=== PATIENT | female | born 1990 | race Caucasian/White ===

== ENCOUNTER 2019-07-26 13:45 | Outpatient (CLI) | payer MEDICAID ==
[~2019-07-26] VITALS: Ht 172.7 cm; Wt 75.9 kg
--- NOTE | 2019-07-26 13:45 | NUR ---
PATIENT ON EFM. SVE, VITALS OBTAINED. PATIENT STATES SHE HAS HAD A FEW CONTRACTIONS, DENIES LEAKING OF FLUID OR BLEEDING. PATIENT STATES SHE SMOKES MARIJUANA ON OCCASION MEDICINALLY FOR PELVIC DISCOMFORT ORDERED BY HER ORTHOPEDIC DOCTOR. THIS NURSE STATED THAT PER POLICY WE NEED TO OBTAIN A URINE DRUG SCREEN. PATIENT DECLINED AND STATES " I AM OFFENDED AND DONT KNOW THE PONT OF THIS" THIS NURSE STATED THE RISKS TO . PATIENT DECLINED. THIS NURSE STATES "OK, GO AHEAD AND GET DRESSED. ILL BE BACK WITH YOUR PAPERWORK" PATIENT LEFT UNIT BEFORE PAPERWORK GIVEN.
[2019-07-26 14:16] VITALS: BP 118/74; PULSE 78; TEMP 97.5
== END 2019-07-26 14:25 | disposition home or self-care (01) ==
LOC: LDRO 13:45 → LDR 13:45 → LDRO 14:25 → LDR 07-28 08:46
DX: O36.8130 Decreased fetal movements, third trimester, not applicable or unspecified (principal); Z3A.35 35 weeks gestation of pregnancy
CPT/HCPCS: OP

== ENCOUNTER 2019-08-22 08:20 | Inpatient (IN) | payer MEDICAID ==
[2019-08-22] VITALS (17 sets, daily range): BP systolic 107–133; BP diastolic 59–81; PULSE 53–97; TEMP 97.5–97.7
[~2019-08-22] VITALS: Ht 172.7 cm; Wt 76.4 kg
--- NOTE | 2019-08-22 12:10 | NUR ---
Patient ambulatory to unit accompanied by sister in law for scheduled section delivery. Patient oriented to room and call light. Gown on and resting in bed. FHR and contraction monitors placed and explained. Assessment completed. Patient denies any leaking of fluid, vaginal bleeding and states baby is active. Patient states she has a DVT in left inner thigh, assessed. Patient states she takes Heparin 1 mg twice daily SQ and took her last dose 08/21/2019 at 2030. Consents signed. IV started in right forearm and LR infusing well. Labs collected from IV site and sent to lab. UA collected and sent to lab for hx of MJ use during . Patient states last use was June 2019.
[2019-08-22] MEDS ORDERED: [UNRECOGNIZED DRUG - CODE] SQ (12:51)
[2019-08-22] MEDS ORDERED: NATURAL IRON65 MG PO (12:51)
[2019-08-22] MEDS ORDERED: PRENATAL TABLET PO (12:52)
[2019-08-22 13:01] LABS: BASO % 0.2 % (0.0-2.0); EOS % 0.4 % (0-4.0); GRAN # 3.5 (1.4-6.5); GRAN % 65.5 % (42.2-75.2); HEMOGLOBIN 11.4 g/dl (12.5-16.0); LYMPH # 1.4 (1.2-3.4); LYMPH % 26.6 % (20.0-51.0); MEAN CELL VOLUME 97 fl (80.0-100.0); MEAN CORPUSCULAR HEMOGLOBIN 32 pg (27.0-31.0); MEAN CORPUSCULAR HGB CONC 33 g/dl (33.0-37.0); MEAN PLATELET VOLUME 12.9 fl (7.4-10.4); MONO # 0.4 (0.1-0.6); MONO % 6.9 % (1.7-9.3); PLATELET COUNT 116 K/mm3 (130-400); RED BLOOD COUNT 3.56 M/mm3 (4.10-5.30)
[2019-08-22 13:02] LABS: HEMATOCRIT 34.6 % (37.0-47.0)
[2019-08-22 13:34] LABS: TRICYCLIC ANTIDEPRESS URINE NEGATIVE
[2019-08-22] MEDS ORDERED: IBU800 M1 PO (15:45)
[2019-08-22] MEDS ORDERED: PERCOCET 325 MG1 TA2 PO (15:45)
[2019-08-22] MEDS ORDERED: LOVENOX 4040 MG/0.4 SQ (15:45)
--- NOTE | 2019-08-22 17:35 | NUR ---
Patient nauseated and vomits 200 ml dark emesis after eating crackers and pudding. Patient given zofran IV.
--- NOTE | 2019-08-22 21:45 | NUR ---
Pt able to lift and hold each leg off of bed for 5 seconds and no longer feels nauseous with vomiting. Pt able to ambulate to bathroom independently. Alarcon catheter removed, 300 mL urine. Pericare explained and provided. Mesh panties and peripad applied. New gown on. Pt educated on need of 3 measured voids. Pt able to ambulate back to bed. Safety precautions reviewed. Pt encouraged to continue to wear SCD's due to history of DVT.
[2019-08-23] VITALS: BP 100/60; PULSE 70; TEMP 97.9
[2019-08-23 04:15] VITALS: BP 102/71; PULSE 70; TEMP 97.7
[2019-08-23 06:30] VITALS: BP 127/65; PULSE 61; TEMP 98.2
[2019-08-23 09:08] LABS: BASO % 0.1 % (0.0-2.0); GRAN # 7.4 (1.4-6.5); GRAN % 82.5 % (42.2-75.2); HEMOGLOBIN 11.1 g/dl (12.5-16.0); LYMPH # 1.1 (1.2-3.4); LYMPH % 11.8 % (20.0-51.0); MEAN CELL VOLUME 96 fl (80.0-100.0); MEAN CORPUSCULAR HEMOGLOBIN 32 pg (27.0-31.0); MEAN CORPUSCULAR HGB CONC 33 g/dl (33.0-37.0); MEAN PLATELET VOLUME 12.8 fl (7.4-10.4); MONO # 0.5 (0.1-0.6); MONO % 5.4 % (1.7-9.3); PLATELET COUNT 114 K/mm3 (130-400); RED BLOOD COUNT 3.47 M/mm3 (4.10-5.30); REDCELL DISTRIBUTION WIDTH-CV 14.1 % (11.5-14.5)
[2019-08-23 09:10] LABS: HEMATOCRIT 33.3 % (37.0-47.0)
[2019-08-23 11:00] VITALS: BP 135/59; PULSE 70; TEMP 98.2
[2019-08-23 17:02] VITALS: BP 11/68; PULSE 68
[2019-08-23 20:03] VITALS: BP 108/68; PULSE 74; TEMP 97.8
[2019-08-24 04:00] VITALS: BP 110/65; PULSE 69; TEMP 98
[2019-08-24 07:15] VITALS: BP 122/82; PULSE 81; TEMP 98.6
[2019-08-24 15:30] VITALS: BP 118/67; PULSE 70; TEMP 98.2
[2019-08-24 23:15] VITALS: BP 120/73; PULSE 62; TEMP 98
[2019-08-25 06:55] VITALS: BP 120/88; PULSE 78; TEMP 98.1
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
[2019-08-25] MEDS ORDERED: IBU800 M1 PO (10:56)
[2019-08-25] MEDS ORDERED: PERCOCET 325 MG1 TA2 PO (12:36)
[2019-08-25 16:31] VITALS: BP 114/66; PULSE 78; TEMP 98.1
--- NOTE | 2019-08-25 16:32 | NUR ---
PERCOCET SCRIPT PRINTED BY DR CAMPOS ON Sunday08/22/19 FOR INSTRUCTIONS OF ONE PERCOCET 5/325 EVERY 4 HOURS NEEDED QUANTITY #15 AND PLACED IN CHART. SCRIPT NOWHERE TO BE FOUND AT THIS TIME. NOT IN CHART AND PATIENT STATES IT WAS NOT GIVEN TO HER. PERCOCET 5/325 ONE TABLET EVERY 4 HOURS NEEDED FOR PAIN QUANTITY #[address] CAMPOS AND GIVEN TO PATIENT AT THIS TIME PER THIS NURSE PER DR CAMPOS REQUEST.
--- NOTE | 2019-08-25 17:08 | NUR ---
Percocet #15 script found and voided.
[2019-08-25 19:47] VITALS: BP 126/72; PULSE 54; TEMP 97.8
--- NOTE | 2019-08-26 05:45 | NUR ---
PT COMES OUT IN HALLWAY AND SAYS HER LEFT INNER THIGH- SITE OF HER DVT- IS SORE AND SHE JUST NOW NOTICED IT- IT IS NOT WARM TO THE TOUCH- I ONLY COULD SEE THE ORIGINAL SITE BUT PT CLAIMS THE PAIN IS BELOW THAT SITE- PT STATES SHE HAS NOT BEEN VERY ACTIVE FAR WALKING IN THE HALLS THE LAST DAY. SHE HAS BEEN MOVING IN THE ROOM QUITE A BIT- BUT THE BABY SLEPT FOR A WHILE SO SHE WAS ALSO ASLEEP. I TOLD HER I WOULD PASS IT ON IN REPORT AND SHE SHOULD DEFINIATELY PASS IT ON TO HER DOCTOR
[2019-08-26 07:25] VITALS: BP 137/89; PULSE 51; TEMP 97.8
--- NOTE | 2019-08-26 08:19 | NUR ---
Infant cord blood tested negative for illegal substances.
[2019-08-26 15:50] VITALS: BP 131/84; PULSE 62; TEMP 97.5
== END 2019-08-26 17:15 | disposition home or self-care (01) | DRG 787 ==
LOC: LDR 08:20 → OB 12:04
PROVIDERS: ADMIT Student in an Organized Health Care Education/Training Program
PROC: 10D00Z1 Extraction of Products of Conception, Low, Open Approach (ICD-10-PCS; principal; 2019-08-22)
DX: O34.211 Maternal care for low transverse scar from previous cesarean delivery (principal); O99.354 Diseases of the nervous system complicating childbirth; O87.0 Superficial thrombophlebitis in the puerperium; O99.12 Other diseases of the blood and blood-forming organs and certain disorders involving the immune mechanism complicating childbirth; O99.02 Anemia complicating childbirth; D64.9 Anemia, unspecified; D69.6 Thrombocytopenia, unspecified; G43.909 Migraine, unspecified, not intractable, without status migrainosus; O99.62 Diseases of the digestive system complicating childbirth; K21.9 Gastro-esophageal reflux disease without esophagitis; O87.4 Varicose veins of lower extremity in the puerperium; Z3A.39 39 weeks gestation of pregnancy; Z37.0 Single live birth
CPT/HCPCS: J0690; J1650; J1885; J2270; J2370; J2405; J2590; J2765; J3010; J7120

== ENCOUNTER 2022-01-05 09:11 | Inpatient (IN) | payer MEDICAID ==
[~2022-01-05] VITALS: Ht 172.7 cm; Wt 83.6 kg
[~2022-01-05 09:11] MED LIST: IBU800 M1 PO; LOVENOX 4040 MG/0.4 SQ; NATURAL IRON65 MG PO; PERCOCET 325 MG1 TA2 PO; PRENATAL TABLET PO; [UNRECOGNIZED DRUG - CODE] SQ
[2022-01-06] VITALS (16 sets, daily range): BP systolic 98–130; BP diastolic 68–88; PULSE 59–88; TEMP 97.8–98.5
--- NOTE | 2022-01-06 10:45 | NUR ---
39.1, G4L3 arrives on unit for scheduled repeat section. Ambulatory to 211. Changes into clean gown. Reports normal movement and rare contractions. Denies any LOF or VB. Assessment completed. VS obtained. Consent forms explained and signed. Plan of care reviewed. Questions invited and answered.
[2022-01-06 11:23] LABS: BASO % 0.4 % (0.0-2.0); EOS % 0.4 % (0.0-4.0); GRAN % 72.6 % (42.2-75.2); LYMPH % 18.4 % (20.0-51.0); MEAN CELL VOLUME 91 fl (80.0-100.0); MEAN CORPUSCULAR HEMOGLOBIN 31 pg (27-31); MEAN CORPUSCULAR HGB CONC 34 g/dl (33.0-37.0); MEAN PLATELET VOLUME 12.1 fl (7.4-10.4); MONO # 0.4 K/mm3 (0.1-0.6); PLATELET COUNT 145 K/mm3 (130-400); RED BLOOD COUNT 3.57 M/mm3 (4.10-5.30); REDCELL DISTRIBUTION WIDTH-CV 14.2 % (11.5-14.5)
[2022-01-06 11:26] LABS: HEMATOCRIT 32.6 % (37.0-47.0)
[2022-01-07 03:25] VITALS: BP 108/68; PULSE 61; TEMP 97.6
[2022-01-07 09:10] VITALS: BP 109/70; PULSE 74; TEMP 98.3
[2022-01-07 12:15] VITALS: BP 121/74; PULSE 72; TEMP 97.6
[2022-01-07 17:55] VITALS: BP 112/76; PULSE 68; TEMP 97.9
[2022-01-07 20:30] VITALS: BP 121/76; PULSE 67; TEMP 97.9
[2022-01-08 08:15] VITALS: BP 125/76; PULSE 72; TEMP 98.2
[2022-01-08] MEDS ORDERED: IBU800 M1 PO (10:09)
[2022-01-08] MEDS ORDERED: PERCOCET 325 MG1 TA2 PO (10:10)
== END 2022-01-08 15:30 | disposition home or self-care (01) | DRG 787 ==
LOC: LDR 01-06 09:11 → OB 01-06 10:38
PROVIDERS: ADMIT Student in an Organized Health Care Education/Training Program
PROC: 10D00Z1 Extraction of Products of Conception, Low, Open Approach (ICD-10-PCS; principal; 2022-01-06)
DX: O34.211 Maternal care for low transverse scar from previous cesarean delivery (principal); E72.12 Methylenetetrahydrofolate reductase deficiency; O99.284 Endocrine, nutritional and metabolic diseases complicating childbirth; O87.4 Varicose veins of lower extremity in the puerperium; I83.899 Varicose veins of unspecified lower extremity with other complications; O99.02 Anemia complicating childbirth; D64.9 Anemia, unspecified; O99.613 Diseases of the digestive system complicating pregnancy, third trimester; K21.9 Gastro-esophageal reflux disease without esophagitis; Z37.0 Single live birth; Z3A.39 39 weeks gestation of pregnancy
CPT/HCPCS: J0690; J1100; J1885; J2370; J2405; J2590; J7120